=== PATIENT | female | born 1975 | race Caucasian/White ===

== ENCOUNTER 2016-09-17 19:19 | Emergency (ER) | payer OTHER ==
[~2016-09-17] VITALS: Ht 162.6 cm; Wt 90.7 kg
[2016-09-17 19:28] VITALS: BP 125/88
== END 2016-09-17 23:09 | disposition home or self-care (01) ==
LOC: EDBD 19:19 → ER 19:26
DX: M25.561 Pain in right knee (principal); Y08.89XA Assault by other specified means, initial encounter; Y93.89 Activity, other specified; Y99.8 Other external cause status; Y92.89 Other specified places as the place of occurrence of the external cause
CPT/HCPCS: 29505; 73562